=== PATIENT | male | born 1945 | race Caucasian/White ===

== ENCOUNTER → 2019-06-21 | Outpatient (CLI) | payer OTHER | END | disposition home or self-care (01) | LOC: CA 08:36 | DX: J44.9 Chronic obstructive pulmonary disease, unspecified (principal) | CPT/HCPCS: 36600 ==

== ENCOUNTER 2019-10-25 15:31 | Inpatient (IN) | payer OTHER ==
[~2019-10-25] VITALS: Ht 172.7 cm; Wt 55.0 kg
[2019-10-25 16:27] LABS: PLATELET COUNT 594 x10^3mcL (130-400); RED CELL DISTRIBUTION WIDTH 14.6 % (11.5-14.5)
[2019-10-25 16:35] LABS: CHLORIDE SERUM 98 mmol/L (98-107); POTASSIUM SERUM 4.1 mmol/L (3.5-5.1); SODIUM SERUM 132 mmol/L (136-145)
[2019-10-25 16:36] LABS: ALBUMIN 2.5 g/dL (3.4-5.0); ALKALINE PHOSPHATASE 148 U/L (46-116); ALT/SGPT 42 U/L (16-63); AST/SGOT 19 U/L (15-37); BILIRUBIN TOTAL 0.6 mg/dL (0.20-1.00); CALCIUM 9.3 mg/dL (8.5-10.1); CARBON DIOXIDE 23.9 mmol/L (21-32); GLUCOSE SERUM 165 mg/dL (74-106)
[2019-10-25] MEDS ORDERED: MEBOLIC TABLET1 EACH PO (17:09)
[2019-10-25] MEDS ORDERED: IMITREX25 MG PO (17:11)
[2019-10-25] MEDS ORDERED: ACETAMINOPHEN650 M6 PO (17:12)
[2019-10-25] MEDS ORDERED: AMIODARONE PO (17:12)
[2019-10-25] MEDS ORDERED: ASPIR 8181 MG PO (17:13)
[2019-10-25] MEDS ORDERED: AUGMENTIN 875-1 EACH PO (17:13)
[2019-10-25] MEDS ORDERED: ATORVASTATIN CA40 M1 PO ×2 (17:14)
[2019-10-25] MEDS ORDERED: AIMOVIG AU70 MG/1 ML SQ (17:15)
[2019-10-25 17:16] LABS: BAND NEUTROPHIL 4 % (0-10); MONOCYTE 6 % (0-7); SEGMENTED NEUTROPHILS 86 % (37-75)
[2019-10-25 17:17] LABS: METAMYELOCTE 2 % (0-2); PLATELET MORPHOLOGY PLATELETS INCREASED
[2019-10-25 17:18] LABS: rbc morphology (normal/abnorm) ABNORMAL (NORMAL)
[2019-10-25] MEDS ORDERED: XOPENEX3 ML (17:18)
[2019-10-25] MEDS ORDERED: TOPROL XL50 MG PO (17:19)
[2019-10-25] MEDS ORDERED: FORMOTEROL FUMA INH (17:20)
[2019-10-25] MEDS ORDERED: MONTELUKAST SOD10 M1 PO (17:21)
[2019-10-25] MEDS ORDERED: MOMETASONE INH (17:21)
[2019-10-25] MEDS ORDERED: FORMOTEROL INH (17:21)
[2019-10-25] MEDS ORDERED: NITROGLYCERIN0.4 MG (17:23)
[2019-10-25] MEDS ORDERED: FLOMAX0.4 MG PO (17:23)
[2019-10-25] MEDS ORDERED: [UNRECOGNIZED DRUG - CODE] PO (17:24)
[2019-10-25] MEDS ORDERED: NASACORT A55 MCG/Ac1 (17:25)
[2019-10-25 17:33] VITALS: BP 96/48
[2019-10-25 17:45] LABS: CHOLESTEROL/HDL RATIO 2.3; MAGNESIUM 2.1 mg/dL (1.8-2.4)
[2019-10-25 20:07] VITALS: BP 112/63
[2019-10-25 23:10] VITALS: BP 124/81
[2019-10-26 01:18] LABS: UA SPECIFIC GRAVITY 1.025 (1.005-1.035); microscopic required? YES; urine erythrocyte TRACE (NEGATIVE)
[2019-10-26 03:15] VITALS: BP 98/60
[2019-10-26 05:05] LABS: POTASSIUM SERUM 4.9 mmol/L (3.5-5.1); SODIUM SERUM 133 mmol/L (136-145)
[2019-10-26 05:06] LABS: CALCIUM 9.2 mg/dL (8.5-10.1); CARBON DIOXIDE 27.6 mmol/L (21-32); CHLORIDE SERUM 99 mmol/L (98-107); GLUCOSE SERUM 150 mg/dL (74-106)
[2019-10-26 05:12] LABS: BASOPHIL % 0 % (0-2); RED CELL DISTRIBUTION WIDTH 14.8 % (11.5-14.5)
[2019-10-26 05:16] LABS: PLATELET COUNT 645 x10^3mcL (130-400)
[2019-10-26 07:37] VITALS: BP 116/73
[2019-10-26 11:28] VITALS: BP 119/68
[2019-10-26 15:51] VITALS: BP 109/69
[2019-10-26 18:30] VITALS: BP 99/64
[2019-10-26 20:58] VITALS: BP 103/58
[2019-10-27 06:18] VITALS: BP 96/60
[2019-10-27 06:28] LABS: BASOPHIL % 0.5 % (0-2)
[2019-10-27 07:47] LABS: CALCIUM 8.7 mg/dL (8.5-10.1); CARBON DIOXIDE 29.7 mmol/L (21-32); CHLORIDE SERUM 99 mmol/L (98-107); GLUCOSE SERUM 120 mg/dL (74-106); POTASSIUM SERUM 4.6 mmol/L (3.5-5.1); SODIUM SERUM 135 mmol/L (136-145)
[2019-10-27 07:55] LABS: RED CELL DISTRIBUTION WIDTH 14.9 % (11.5-14.5)
[2019-10-27 08:31] LABS: PLATELET COUNT 580 x10^3mcL (130-400)
[2019-10-27 08:52] VITALS: BP 97/61
[2019-10-27 11:45] VITALS: BP 101/62
[2019-10-27 16:53] VITALS: BP 97/57
[2019-10-27 19:30] VITALS: BP 93/51
[2019-10-27 22:45] VITALS: BP 102/51
[2019-10-28] VITALS (8 sets, daily range): BP systolic 98–121; BP diastolic 51–96
[2019-10-28 11:31] LABS: CALCIUM 8.9 mg/dL (8.5-10.1); CARBON DIOXIDE 29.6 mmol/L (21-32); CHLORIDE SERUM 98 mmol/L (98-107); GLUCOSE SERUM 148 mg/dL (74-106); POTASSIUM SERUM 4.1 mmol/L (3.5-5.1); SODIUM SERUM 135 mmol/L (136-145)
[2019-10-28 11:40] LABS: BASOPHIL % 0.2 % (0-2); RED CELL DISTRIBUTION WIDTH 14.9 % (11.5-14.5)
[2019-10-28 11:41] LABS: PLATELET COUNT 518 x10^3mcL (130-400)
[2019-10-29 06:00] VITALS: BP 103/61
[2019-10-29 06:18] LABS: BASOPHIL % 0.4 % (0-2)
[2019-10-29 07:16] LABS: PLATELET COUNT 622 x10^3mcL (130-400); RED CELL DISTRIBUTION WIDTH 14.7 % (11.5-14.5)
[2019-10-29 07:55] LABS: CALCIUM 8.8 mg/dL (8.5-10.1); CHLORIDE SERUM 100 mmol/L (98-107); CREATININE SERUM 0.9 mg/dL (0.7-1.3); GLUCOSE SERUM 146 mg/dL (74-106); POTASSIUM SERUM 4.5 mmol/L (3.5-5.1); SODIUM SERUM 136 mmol/L (136-145)
[2019-10-29 08:24] VITALS: BP 115/61
[2019-10-29 13:31] VITALS: BP 135/83
[2019-10-29 16:52] VITALS: BP 126/71
[2019-10-29 19:30] VITALS: BP 115/68
[2019-10-30 06:22] VITALS: BP 146/78
[2019-10-30 09:17] VITALS: BP 107/55
[2019-10-30 12:39] VITALS: BP 107/61
[2019-10-30 14:41] VITALS: Ht 172.7 cm; Wt 55.0 kg
[2019-10-30 17:43] VITALS: BP 101/63
[2019-10-30 21:08] VITALS: BP 101/59
[2019-10-31 05:15] LABS: CALCIUM 8.4 mg/dL (8.5-10.1); CARBON DIOXIDE 30.3 mmol/L (21-32); CHLORIDE SERUM 102 mmol/L (98-107); CREATININE SERUM 0.8 mg/dL (0.7-1.3); GLUCOSE SERUM 173 mg/dL (74-106); POTASSIUM SERUM 3.3 mmol/L (3.5-5.1); SODIUM SERUM 135 mmol/L (136-145)
[2019-10-31 06:12] VITALS: BP 118/67
[2019-10-31 06:41] LABS: BASOPHIL % 0.2 % (0-2)
[2019-10-31 08:39] LABS: RED CELL DISTRIBUTION WIDTH 14.7 % (11.5-14.5)
[2019-10-31 08:57] LABS: PLATELET COUNT 557 x10^3mcL (130-400)
[2019-10-31 09:15] VITALS: BP 124/77
[2019-10-31 12:33] VITALS: BP 124/77
[2019-10-31 14:13] VITALS: BP 103/57
== END 2019-10-31 17:00 | disposition other institution (70) | DRG 871 ==
LOC: ED 15:31 → IC 17:13 → DU 10-26 18:09
PROVIDERS: Emergency Medicine; Internal Medicine Cardiovascular Disease; ADMIT Internal Medicine
DX: A41.9 Sepsis, unspecified organism (principal); J18.9 Pneumonia, unspecified organism; J44.1 Chronic obstructive pulmonary disease with (acute) exacerbation; Z68.1 Body mass index [BMI] 19.9 or less, adult; N39.0 Urinary tract infection, site not specified; I48.20 Chronic atrial fibrillation, unspecified; J44.0 Chronic obstructive pulmonary disease with (acute) lower respiratory infection; R63.0 Anorexia; N40.0 Benign prostatic hyperplasia without lower urinary tract symptoms; B96.20 Unspecified Escherichia coli [E. coli] as the cause of diseases classified elsewhere; E86.0 Dehydration; I10 Essential (primary) hypertension; I25.10 Atherosclerotic heart disease of native coronary artery without angina pectoris; I25.2 Old myocardial infarction; Z79.82 Long term (current) use of aspirin; Z87.891 Personal history of nicotine dependence; Z79.01 Long term (current) use of anticoagulants; Z95.5 Presence of coronary angioplasty implant and graft; Z90.49 Acquired absence of other specified parts of digestive tract
CPT/HCPCS: 78226; 83880; 94150; A9537; G0378; J1160; J1644; J1940; J2543; J3420; J3490; J7040; J7042; J7050; J7620; J7626; J7644; Q0092